=== PATIENT | female | born 1995 | race Two or more races ===

== ENCOUNTER 2024-05-28 12:31 | Outpatient (CLI) | payer OTHER ==
[2024-05-28] MEDS ORDERED: MAGNESIUM250 M1 PO (12:41)
[2024-05-28] MEDS ORDERED: PRENATABS RX T1 EACH PO (12:41)
[2024-05-28] MEDS ORDERED: MAGNESIUM SULFATE IN WATER 500 ML IV SCH (12:45)
[2024-05-28] MEDS ORDERED: MAGNESIUM SULFATE IN WATER 100 ML IV ONE (12:45)
[2024-05-28] MEDS ORDERED: RINGERS SOLUTION,LACTATED 1,000 ML IV SCH (12:45)
[2024-05-28] MEDS ORDERED: MAGNESIUM SULFATE IN WATER 0.04 GM/ML IV.SOLN IV ONE (12:55)
== END 2024-05-29 09:37 | disposition home or self-care (01) ==
LOC: OBS/DEL 12:31
PROVIDERS: ATTEND Obstetrics & Gynecology
DX: O26.893 Other specified pregnancy related conditions, third trimester (principal); Z3A.31 31 weeks gestation of pregnancy

== ENCOUNTER 2024-06-23 03:28 | Inpatient (IN) | payer OTHER ==
[~2024-06-23] VITALS: Ht 170.2 cm; Wt 104.3 kg
[2024-06-23 02:54] VITALS: BP 137/77
[~2024-06-23 03:28] MED LIST: MAGNESIUM250 M1 PO; PRENATABS RX T1 EACH PO
[2024-06-23] MEDS ORDERED: AMPICILLIN SODIUM 2,000 MG VIAL IV STA (03:38)
[2024-06-23] MEDS ORDERED: RINGERS SOLUTION,LACTATED 1,000 ML IV SCH (03:45)
[2024-06-23] MEDS ORDERED: BETAMETHASONE ACETATE,SOD PHOS 30 MG/5 ML ML IM SCH (03:45)
[2024-06-23] MEDS ORDERED: MAGNESIUM SULFATE IN WATER 500 ML IV SCH (03:45)
[2024-06-23 05:31] LABS: INR < 0.93; PARTIAL THROMBOPLASTIN TIME 26.3 SECONDS (22.0-34.0)
[2024-06-23 06:08] LABS: HEMATOCRIT 38.7 % (36.0-45.00); HEMOGLOBIN 13.2 g/dL (12.0-15.00); MEAN CELL VOLUME 87.4 fL (80.00-100.00); MEAN CORPUSCULAR HEMOGLOBIN 29.8 pg (27.00-32.0); MEAN CORPUSCULAR HGB CONC 34.2 g/dl (32.0-36.0); PLATELET COUNT 180 K/uL (150-450); RED BLOOD COUNT 4.43 M/uL (4.00-6.00); RED CELL DISTRIBUTION WIDTH 14.7 % (11.5-14.5)
[2024-06-23 07:44] VITALS: BP 117/66
[2024-06-23 07:57] LABS: ALBUMIN 2.6 gm/dL (3.4-5.0); BILIRUBIN TOTAL 0.23 mg/dL (0.3-1.2); CALCIUM 8.7 mg/dL (8.5-10.1); CREATININE SERUM 0.53 mg/dL (0.55-1.02); GFR 135.45; GLOBULINA 3.5 G/DL (2.4-3.5); POTASSIUM 4.18 mEq/L (3.5-5.1); TOTAL PROTEIN 6.1 gm/dL (6.4-8.2)
[2024-06-23] MEDS ORDERED: AMPICILLIN SODIUM 1,000 MG VIAL IV SCH (08:00)
[2024-06-23 11:01] VITALS: BP 111/74
[2024-06-23 15:45] VITALS: BP 113/61
[2024-06-23 19:06] VITALS: BP 103/64
[2024-06-23] MEDS ORDERED: MISOPROSTOL 25 MCG TABLET VAG SCH (20:15)
[2024-06-23 23:22] VITALS: BP 108/80
[2024-06-24] VITALS (7 sets, daily range): BP systolic 112–136; BP diastolic 56–76
[2024-06-24] MEDS ORDERED: MORPHINE SULFATE 4 MG/ML CARTRIDGE IV PRN (02:45)
[2024-06-24] MEDS ORDERED: BETAMETHASONE ACETATE,SOD PHOS 30 MG/5 ML ML ONE (04:25)
[2024-06-24] MEDS ORDERED: ERYTHROMYCIN BASE 1 GM TUBE OP ONE ×2 (12:48→15:15)
[2024-06-24] MEDS ORDERED: CHLORHEXIDINE GLUCONATE 120 ML BOTTLE TOP ONE (12:48)
[2024-06-24] MEDS ORDERED: OXYTOCIN 20 UNITS/1000ML RL PIGGYBAG IV ONE ×2 (12:48→18:25)
[2024-06-24] MEDS ORDERED: LIDOCAINE HCL 1% 10ML VIAL ONE (12:49)
[2024-06-24] MEDS ORDERED: OXYTOCIN 500 ML IV SCH (13:30)
[2024-06-24] MEDS ORDERED: NALOXONE HCL 0.4 MG/ML AMPUL ONE (14:09)
[2024-06-24] MEDS ORDERED: OXYTOCIN 10 UNITS/ML VIAL ONE (14:24)
[2024-06-24] MEDS ORDERED: CHLORHEXIDINE GLUCONATE 120 ML BOTTLE TP SCH (15:00)
[2024-06-24] MEDS ORDERED: OxyCODONE HCL/APAP UD (PERCOCET) PO PRN (15:00)
[2024-06-24] MEDS ORDERED: OXYTOCIN 1,000 ML IV SCH (15:00)
[2024-06-24] MEDS ORDERED: IBUprofen 400 MG TABLET PO PRN (15:00)
[2024-06-24] MEDS ORDERED: NALOXONE HCL 0.4 MG/ML AMPUL IV ONE (15:15)
[2024-06-24] MEDS ORDERED: LIDOCAINE HCL 1% 10ML VIAL IJ ONE (15:15)
[2024-06-25] VITALS: BP 92/64
[2024-06-25 11:26] VITALS: BP 114/55
[2024-06-25] MEDS ORDERED: OXYTOCIN 2,000 ML IV SCH (15:00)
[2024-06-25 15:50] VITALS: BP 115/55
[2024-06-26 00:54] VITALS: BP 100/65
[2024-06-26 08:49] VITALS: BP 107/72
== END 2024-06-26 14:24 | disposition home or self-care (01) | DRG 807 ==
LOC: LDR → OB/GYN 06-24 18:54
PROVIDERS: ADMIT Obstetrics & Gynecology Maternal & Fetal Medicine; ATTEND Obstetrics & Gynecology Maternal & Fetal Medicine
PROC: 3E0P7VZ Introduction of Hormone into Female Reproductive, Via Natural or Artificial Opening (ICD-10-PCS; 2024-06-23)
PROC: 4A1HXCZ Monitoring of Products of Conception, Cardiac Rate, External Approach (ICD-10-PCS; 2024-06-23)
PROC: 10E0XZZ Delivery of Products of Conception, External Approach (ICD-10-PCS; principal; 2024-06-24)
PROC: 0KQM0ZZ Repair Perineum Muscle, Open Approach (ICD-10-PCS; 2024-06-24)
PROC: 3E033VJ Introduction of Other Hormone into Peripheral Vein, Percutaneous Approach (ICD-10-PCS; 2024-06-24)
DX: O70.1 Second degree perineal laceration during delivery (principal); Z37.0 Single live birth; Z3A.35 35 weeks gestation of pregnancy; Z20.822 Contact with and (suspected) exposure to COVID-19

== ENCOUNTER 2025-03-07 05:45 | Day surgery (SDC) | payer OTHER ==
[2025-03-06 12:33] LABS: HEMATOCRIT 39.2 % (36.0-45.00); HEMOGLOBIN 13.4 g/dL (12.0-15.00); MEAN CELL VOLUME 86.1 fL (80.00-100.00); MEAN CORPUSCULAR HEMOGLOBIN 29.5 pg (27.00-32.0); MEAN CORPUSCULAR HGB CONC 34.2 g/dl (32.0-36.0); PLATELET COUNT 221 K/uL (150-450); RED BLOOD COUNT 4.55 M/uL (4.00-6.00); RED CELL DISTRIBUTION WIDTH 13.2 % (11.5-14.5)
[2025-03-06 12:41] LABS: INR 0.97; PARTIAL THROMBOPLASTIN TIME 27.9 SECONDS (22.0-34.0); PROTHROMBIN TIME 10.6 SECONDS (9.0-11.5)
[2025-03-06 13:55] LABS: ALBUMIN 3.3 gm/dL (3.4-5.0); BILIRUBIN TOTAL 0.26 mg/dL (0.3-1.2); CALCIUM 8.8 mg/dL (8.5-10.1); CREATININE SERUM 0.61 mg/dL (0.55-1.02); GFR 115.16; GLOBULINA 3.4 G/DL (2.4-3.5); POTASSIUM 4.1 mEq/L (3.5-5.1); TOTAL PROTEIN 6.7 gm/dL (6.4-8.2)
[2025-03-07] MEDS ORDERED: CEFOXITIN SODIUM 2,000 MG VIAL IV ONE (09:09)
[2025-03-07] MEDS ORDERED: POVIDONE-IODINE 118 ML BOTT TOP ONE (12:19)
[2025-03-07] MEDS ORDERED: MORPHINE SULFATE 4 MG/ML VIAL IV PRN (13:30)
[2025-03-07] MEDS ORDERED: PROMETHAZINE HCL 50 MG/ML AMPUL IM ONE (13:30)
== END 2025-03-07 16:15 | disposition home or self-care (01) ==
LOC: CIR.AMB 05:45
PROVIDERS: ATTEND Obstetrics & Gynecology
DX: O02.1 Missed abortion (principal)